=== PATIENT | female | born 1970 | race Caucasian/White ===

== ENCOUNTER 2017-04-09 07:10 | Outpatient (CLI) | payer MEDICARE, MEDICAID | END 2017-04-09 07:11 | disposition home or self-care (01) | LOC: LAB.R 07:10 | PROVIDERS: ATTEND Family Medicine | DX: R30.0 Dysuria (principal) | CPT/HCPCS: 87077; 87086 ==

== ENCOUNTER 2017-07-29 14:03 | Outpatient (CLI) | payer MEDICARE, MEDICAID ==
[2017-07-29 19:48] LABS: ALBUMIN/GLOBULIN RATIO 1.2 (1.0-2.2); BILIRUBIN,TOTAL 0.4 mg/dL (0.2-1.0); BUN - BLOOD UREA NITROGEN 16 mg/dL (6-20); CALCIUM 8.8 mg/dL (8.5-10.3); CARBON DIOXIDE - CO2 31 mmol/L (21-32); CHLORIDE 100 mmol/L (101-111); CHOL/HDL RATIO 2.9 (<4.4); CHOLESTEROL 174 mg/dL; CREATININE 0.9 mg/dL (0.4-1.0); GFR - MDRD 67 (>89); GLUCOSE 87 mg/dL (70-100); HDL CHOLESTEROL 61 mg/dL; LDL/HDL RATIO 1.5 (<4.4); POTASSIUM 3.1 mmol/L (3.5-5.0); SODIUM 141 mmol/L (135-145); TOTAL PROTEIN 7.4 g/dL (6.7-8.2); TRIGLYCERIDES 115 mg/dL; VLDL CHOLESTEROL 23 mg/dL
[2017-07-29 19:54] LABS: BASOPHILS # (AUTO) 0.1 10^3/uL (0.0-0.1); EOSINOPHILS # (AUTO) 0.3 10^3/uL (0.0-0.7); EOSINOPHILS % (AUTO) 3.8 %; HCT - HEMATOCRIT 40.2 % (37.0-47.0); HGB - HEMOGLOBIN 12.6 g/dL (12.0-16.0); IMMATURE RETIC FRACTION 0.41; LYMPHOCYTES # (AUTO) 1.4 10^3/uL (1.5-3.5); LYMPHOCYTES % (AUTO) 20.7 %; MEAN CORPUSCULAR HEMOGLOBIN 25.9 pg (27.0-31.0); MEAN CORPUSCULAR HGB CONC 31.2 g/dL (32.0-36.0); MEAN PLATELET VOLUME 9.6 fL (7.9-10.8); MONOCYTES # (AUTO) 0.6 10^3/uL (0.0-1.0); MONOCYTES % (AUTO) 8.6 %; NEUTROPHILS # (AUTO) 4.5 10^3/uL (1.5-6.6); NEUTROPHILS % (AUTO) 65.9 %; RED BLOOD COUNT 4.85 10^6/uL (4.20-5.40); RED CELL DISTRIBUTION WIDTH 17.5 % (12.0-15.0); UNCORRECTED WHITE BLOOD COUNT 6.9 x10^3/uL; WHITE BLOOD COUNT 6.9 x10^3/uL (4.8-10.8)
[2017-07-29 20:03] LABS: FOLATE 16.96 ng/mL (5.90 - >24.8)
[2017-07-29 21:07] LABS: SLIDE SENT FOR PATH REVIEW? Not Indicated
== END 2017-07-29 14:04 | disposition home or self-care (01) ==
LOC: LAB.N 14:03
PROVIDERS: ATTEND Family Medicine
DX: E11.9 Type 2 diabetes mellitus without complications (principal); E55.9 Vitamin D deficiency, unspecified; D51.8 Other vitamin B12 deficiency anemias
CPT/HCPCS: 36415; 80053; 80061; 82306; 82607; 82746; 85025; 85044

== ENCOUNTER 2017-10-14 08:00 | Outpatient (CLI) | payer MEDICARE, MEDICAID ==
[2017-10-14 19:46] LABS: CREATININE 1.1 mg/dL (0.4-1.0)
== END 2017-10-14 08:01 | disposition home or self-care (01) ==
LOC: LAB.N 08:00
PROVIDERS: ATTEND Family Medicine
DX: E87.6 Hypokalemia (principal)
CPT/HCPCS: 36415; 80048

== ENCOUNTER 2017-10-16 13:52 | Outpatient (CLI) | payer MEDICARE ==
--- NOTE | 2017-10-17 12:21 | XRAY Report ---
DATE OF SERVICE: 10/16/2017 THREE-VIEW RIGHT KNEE: 10/16/2017 CLINICAL INDICATION: Chronic pain. COMPARISON: 08/13/2011 FINDINGS: Frontal, lateral, sunrise views of the right knee demonstrate moderate osteoarthritis. There is no evidence of interval fracture. No effusion is seen. IMPRESSION: MODERATE OSTEOARTHRITIS. TD: 10/17/2017 12:20
== END 2017-10-16 13:53 | disposition home or self-care (01) ==
LOC: DI.N 13:52
PROVIDERS: ATTEND Family Medicine
DX: M17.11 Unilateral primary osteoarthritis, right knee (principal)

== ENCOUNTER 2018-02-05 08:00 | Outpatient (CLI) | payer MEDICARE, MEDICAID ==
[2018-02-05 19:06] LABS: CALCIUM 8.7 mg/dL (8.5-10.3); CREATININE 0.9 mg/dL (0.4-1.0)
== END 2018-02-05 08:01 ==
LOC: LAB.N 08:00
PROVIDERS: ATTEND Family Medicine
DX: E87.6 Hypokalemia (principal)
CPT/HCPCS: 36415; 80048

== ENCOUNTER 2018-07-21 11:52 | Outpatient (CLI) | payer MEDICARE, MEDICAID ==
[2018-07-21 19:06] LABS: BASOPHILS # (AUTO) 0.1 10^3/uL (0.0-0.1); BASOPHILS % (AUTO) 1.3 %; EOSINOPHILS # (AUTO) 0.3 10^3/uL (0.0-0.7); HGB - HEMOGLOBIN 12.8 g/dL (12.0-16.0); LYMPHOCYTES # (AUTO) 1.8 10^3/uL (1.5-3.5); LYMPHOCYTES % (AUTO) 34.1 %; MEAN CORPUSCULAR HEMOGLOBIN 27.5 pg (27.0-31.0); MEAN CORPUSCULAR HGB CONC 31.2 g/dL (32.0-36.0); MEAN CORPUSCULAR VOLUME 88.3 fL (81.0-99.0); MEAN PLATELET VOLUME 9.8 fL (7.9-10.8); MONOCYTES # (AUTO) 0.5 10^3/uL (0.0-1.0); MONOCYTES % (AUTO) 9.7 %; NEUTROPHILS # (AUTO) 2.6 10^3/uL (1.5-6.6); NEUTROPHILS % (AUTO) 49.9 %; PLT - PLATELET COUNT 209 10^3/uL (130-450); RED BLOOD COUNT 4.65 10^6/uL (4.20-5.40); RED CELL DISTRIBUTION WIDTH 15.9 % (12.0-15.0); WHITE BLOOD COUNT 5.3 x10^3/uL (4.8-10.8)
[2018-07-21 19:11] LABS: ALBUMIN 4.2 g/dL (3.2-5.5); ALBUMIN/GLOBULIN RATIO 1.2 (1.0-2.2); BILIRUBIN,TOTAL 0.6 mg/dL (0.2-1.0); CALCIUM 8.9 mg/dL (8.5-10.3); CREATININE 0.9 mg/dL (0.4-1.0); TOTAL PROTEIN 7.6 g/dL (6.7-8.2)
[2018-07-21 19:41] LABS: FERRITIN 11.4 ng/mL (11.0-306.8)
[2018-07-21 19:45] LABS: FOLATE 23.93 ng/mL (5.90 - >24.8)
[2018-07-21 19:55] LABS: HB2 TOTAL 13.3 g/dL; HEMOGLOBIN A1C 0.47 g/dL; HEMOGLOBIN A1C % 5.4 % (4.6-6.2)
== END 2018-07-21 23:59 ==
LOC: LAB.N 11:52
PROVIDERS: ATTEND Family Medicine
DX: D51.8 Other vitamin B12 deficiency anemias (principal); E11.9 Type 2 diabetes mellitus without complications; I89.0 Lymphedema, not elsewhere classified
CPT/HCPCS: 36415; 80053; 82607; 82728; 82746; 83036; 85025

== ENCOUNTER 2018-09-12 13:20 | Outpatient (CLI) | payer MEDICARE, MEDICAID ==
--- NOTE | 2018-09-12 15:50 | XRAY Report ---
Reason: CELLULITIS, RIGHT Procedure Date: 09/12/2018 Accession Number: [id number] / [id number] Procedure: XRN - Finger(s) RT CPT Code: FULL RESULT: EXAM: RIGHT SECOND DIGIT RADIOGRAPHY EXAM DATE: 09/12/2018 01:40 PM. CLINICAL HISTORY: Right hand 2nd finger swelling at distal interphalangeal joint area with drainage of thick clear fluid.. COMPARISON: None. TECHNIQUE: 3 views. FINDINGS: Bones: No osseous destruction. No fracture or bone lesion. Joints: Normal. No subluxations. Soft Tissues: No radiopaque foreign body and no soft tissue gas. IMPRESSION: No radiopaque foreign body and no soft tissue gas. RADIA
== END 2018-09-12 13:21 | disposition home or self-care (01) ==
LOC: DI.N 13:20
PROVIDERS: ATTEND Family Medicine
DX: L03.90 Cellulitis, unspecified (principal)
CPT/HCPCS: 73140

== ENCOUNTER 2018-10-06 10:32 | Outpatient (CLI) | payer MEDICARE, MEDICAID ==
[2018-10-06 11:00] LABS: BASOPHILS # (AUTO) 0.1 10^3/uL (0.0-0.1); BASOPHILS % (AUTO) 1.3 %; EOSINOPHILS # (AUTO) 0.4 10^3/uL (0.0-0.7); EOSINOPHILS % (AUTO) 5.9 %; HGB - HEMOGLOBIN 13.3 g/dL (12.0-16.0); LYMPHOCYTES # (AUTO) 1.8 10^3/uL (1.5-3.5); LYMPHOCYTES % (AUTO) 25.2 %; MEAN CORPUSCULAR HEMOGLOBIN 28.5 pg (27.0-31.0); MEAN CORPUSCULAR HGB CONC 32.5 g/dL (32.0-36.0); MEAN CORPUSCULAR VOLUME 87.7 fL (81.0-99.0); MEAN PLATELET VOLUME 8.8 fL (7.9-10.8); MONOCYTES # (AUTO) 0.8 10^3/uL (0.0-1.0); MONOCYTES % (AUTO) 10.9 %; NEUTROPHILS # (AUTO) 3.9 10^3/uL (1.5-6.6); NEUTROPHILS % (AUTO) 56.7 %; PLT - PLATELET COUNT 214 10^3/uL (130-450); RED BLOOD COUNT 4.68 10^6/uL (4.20-5.40); RED CELL DISTRIBUTION WIDTH 15.1 % (12.0-15.0); WHITE BLOOD COUNT 6.9 x10^3/uL (4.8-10.8)
== END 2018-10-06 10:33 | disposition home or self-care (01) ==
LOC: LAB 10:32
PROVIDERS: ATTEND Orthopaedic Surgery
DX: M00.9 Pyogenic arthritis, unspecified (principal)
CPT/HCPCS: 36415; 85025; 85651; 86140

== ENCOUNTER 2018-10-14 06:04 | Day surgery (SDC) | payer MEDICARE, MEDICAID ==
--- NOTE | 2018-10-14 07:09 | ANESTHESIA ---
Pre-Anesthesia VS, & Labs - Diagnosis Right index finger joint infection - Procedure arthrotomy of right index finger distal interphalangeal joint and fusion of joint Vital Signs: Temp Pulse Resp BP Pulse Ox 36.0 C L 71 18 143/101 H 98 10/14/18 06:45 10/14/18 06:45 10/14/18 06:45 10/14/18 06:45 10/14/18 06:45 Height 5 ft 6 in Weight (kg) 149.4 kg Body Mass Index 41.5 - Is Patient ?: No - Lab Results Lab results reviewed: Yes Home Medications and Allergies Home Medications: Ambulatory Orders Acetaminophen [Tylenol Extra Strength] 500 mg PO Q6H PRN 10/13/18 Cyanocobalamin (Vitamin B-12) [Vitamin B-12 (1000 mcg sublingual)] 1,000 mcg SL DAILY 10/13/18 Ibuprofen [Motrin] 600 mg PO Q6H PRN 10/13/18 Phenylephrine HCl [Sudafed PE] 20 mg PO ONCE PRN 10/13/18 Potassium Chloride 20 meq PO BID 10/13/18 Bupropion HCl [Bupropion HCl Sr] 300 mg PO DAILY 05/18/14 Cholecalciferol (Vitamin D3) [Vitamin D] 8,000 unit PO DAILY 05/18/14 Fluoxetine HCl 80 mg PO DAILY 05/18/14 Furosemide 40 mg PO TID 05/18/14 Gabapentin 1 cap PO DAILY 05/18/14 Gabapentin 1,200 mg PO QPM 05/18/14 Multivitamin [Multivitamins] 1 cap PO DAILY 05/18/14 Pantoprazole Sodium [Protonix] 40 tab PO DAILY 05/18/14 Acetaminophen [Tylenol Extra Strength] 500 mg PO Q6H PRN 10/13/18 Cyanocobalamin (Vitamin B-12) [Vitamin B-12 (1000 mcg sublingual)] 1,000 mcg SL DAILY 10/13/18 Ibuprofen [Motrin] 600 mg PO Q6H PRN 10/13/18 Phenylephrine HCl [Sudafed PE] 20 mg PO ONCE PRN 10/13/18 Potassium Chloride 20 meq PO BID 10/13/18 Allergies/Adverse Reactions: Allergies Allergy/AdvReac Type Severity Reaction Status Date / Time clindamycin Allergy Rash Verified 05/18/14 13:16 doxycycline Allergy Rash Verified 05/18/14 13:16 Sulfa (Sulfonamide Allergy Hives Verified 10/13/18 09:09 Antibiotics) quetiapine fumarate * AdvReac "makes me Verified 10/13/18 09:09 [From Seroquel] anna" Anes History & Medical History - Anesthetic History Anesthesia Complications: reports: No previous complications - Medical History Cardiovascular: reports: Hypertension (states now resolved after gastric bypass) Pulmonary: reports: Sleep apnea (states no longer has THIAGO) Gastrointestinal: reports: GERD (barrets esophagus), Other (Morbid Obesity) Urinary: reports: None Neuro: reports: None Musculoskeletal: reports: Osteoarthritis, Other (lymphadema) Endocrine/Autoimmune: reports: Type 2 diabetes (resolved after gastric bypass) Blood Disorders: reports: None Skin: reports: None Smoking Status: Never smoker Psychosocial: reports: Depression - Surgical History General: Gastric surgery Eyes Ears Nose Throat (EENT): Tonsil/Adenoidectomy Dermatologic: Other Exam General: Alert, Oriented x3, Cooperative, No acute distress Dental: WNL Mouth Openin Fingerbreadth Neck Mobility: Normal Mallampati classification: I Thyromental Distance: 4-6 cm Respiratory: Lungs clear, Normal breath sounds, No respiratory distress, No accessory muscle use Cardiovascular: Regular rate, Normal S1, Normal S2, No murmurs Mental/Cognitive Status: Alert/Oriented X3, Normal for patient Plan Anesthesia Type: MAC Consent for Procedure(s) Verified and Reviewed: Yes Code Status: Attempt Resuscitation ASA classification: 3-Severe systemic disease Is this case an emergency?: No
[2018-10-14] MEDS ORDERED: LACTATED RINGERS 1,000 ML IV ONE (07:11)
[2018-10-14] MEDS ORDERED: BUPIVACAINE 0.25% PF 30 ML VIAL ONE (07:17)
[2018-10-14] MEDS ORDERED: LIDOCAINE-MPF 1% 30 ML VIAL ONE (07:43)
[2018-10-14] MEDS ORDERED: BUPIVACAINE 0.25% PF 30 ML VIAL SUBQ ONE (07:56)
[2018-10-14] MEDS ORDERED: LIDOCAINE 1% 50 ML MDV SUBQ ONE (07:56)
[2018-10-14] MEDS ORDERED: MIDAZOLAM 2 MG/2 ML VIAL IVP ONE (07:58)
[2018-10-14] MEDS ORDERED: fentaNYL 100 MCG/2 ML VIAL IVP ONE (07:58)
[2018-10-14] MEDS ORDERED: LIDOCAINE-MPF 2% 5 ML VIAL IM ONE (07:58)
[2018-10-14] MEDS ORDERED: PROPOFOL 200 MG/20 ML VIAL IVP ONE (07:58)
[2018-10-14] MEDS ORDERED: ceFAZolin 1 GM VIAL IV ONE (07:58)
[2018-10-14] MEDS ORDERED: HYDROcod/ACETAM 5/325 MG TABLET PO PRN (08:46)
[2018-10-14 09:43] VITALS: BP 138/71
--- NOTE | 2018-10-14 10:40 | OPERATIVE REPORT ---
DATE OF SERVICE: 10/14/2018 Physician: Pattie De Leon MD PREOPERATIVE DIAGNOSIS: Suspected infection of right index distal interphalangeal DIP joint with arthritis. POSTOPERATIVE DIAGNOSIS: Right index finger distal interphalangeal DIP joint arthritis. PROCEDURE PERFORMED: Arthrotomy of the right index distal interphalangeal DIP joint, with cultures taken, followed by fusion of the DIP joint. SURGEON: Pattie De Leon MD ANESTHESIA: MAC and local; Efraín Chow. INDICATIONS FOR SURGERY: Patient is a 48-year-old female who has arthritic changes in her hands, who developed a mucous cyst on the dorsum of her right DIP joint of the index finger and she opted to try to self drain this with a needle. This proceeded to lead to outright infection, treated through an outlying clinic with antibiotics. She came to me at a late stage having still some mild residual pink discoloration and tenderness at the joint, and arthritic changes on x-ray, and workup was negative for serum blood tests for infection, and it was elected then to offer her arthrotomy debridement and, if the joint was not grossly infected, to proceed to fusion of the joint after arthrotomy. FINDINGS AT SURGERY: Patient's finger at surgery remained with a faint hue of pink discoloration, as had been seen preoperatively. At arthrotomy, there was no fluid whatsoever. There was cartilage thinning in the joint and mild surrounding osteophytes. The bone density, in general, was not great but relatively preserved with no evidence of bony erosions or destruction. DESCRIPTION OF OPERATIVE PROCEDURE: The patient was taken to the operating room, given MAC anesthesia, followed by a digital block anesthesia utilizing 1% lidocaine plain and 0.25% Marcaine plain. After an adequate period of delay for the block to take effect and the patient to be sedated, her hand was sterilely prepped and draped in standard fashion. A small digital tourniquet was rolled onto the finger and after surgical time-out, surgical approach was made using a curved incision over the DIP joint and reflecting flaps, preserving the extensor tendon. Arthrotomy was made on both sides of the extensor insertion, and no fluid was encountered and no inflamed synovium, simply an arthritic DIP joint with mild spurs. Cultures were taken. At this point, irrigation was performed. The extensor tendon was divided dorsally and the joint exposed more thoroughly, and the joint surfaces were resected with a rongeur to flat surfaces, and then a rasp was used to gently more fully flatten the surfaces for coaptation. They were coapted together and a guide pin was used for the Savanah set for variable compression screws, and placed from distal to proximal into the finger, stabilizing the joint and allowing drilling with the corresponding drill and then inserting a VPC screw, small size, 20 mm length with fluoroscopic imaging to confirm placement and alignment. This was excellent at gaining compression through the fusion site with alignment that was acceptable. At the conclusion of this, the tourniquet was removed, and there was some bleeding controlled with direct pressure, with closure, and interrupted 3-0 sutures, and application of a compressive digital dressing not under extreme compression. The patient was then taken to recovery room in stable condition. ESTIMATED BLOOD LOSS FOR PROCEDURE: Minimal, less than a few cubic centimeters. COMPLICATIONS: None. COUNTS: Sponge and needle counts correct. SPECIMENS: Cultures were sent from the base of the open incision. IMPLANTS: Savanah VPC screw of small size, 20 mm in length. TD: 10/14/2018 09:35 TAMY
[2018-10-14] MEDS ORDERED: cephALEXin 250 MG CAPSULE PO SCH (12:00)
== END 2018-10-14 06:05 | disposition home or self-care (01) ==
LOC: SDS 06:04
PROVIDERS: ATTEND Orthopaedic Surgery
PROC: 0RGW04Z Fusion of Right Finger Phalangeal Joint with Internal Fixation Device, Open Approach (ICD-10-PCS; 2018-10-14)
PROC: 0RBW0ZX Excision of Right Finger Phalangeal Joint, Open Approach, Diagnostic (ICD-10-PCS; principal; 2018-10-14 07:30)
DX: M15.1 Heberden's nodes (with arthropathy) (principal); I10 Essential (primary) hypertension; G47.30 Sleep apnea, unspecified; E66.01 Morbid (severe) obesity due to excess calories; Z68.41 Body mass index [BMI] 40.0-44.9, adult
CPT/HCPCS: 26110; 26860; 87070; 87205; J7120; 80048

== ENCOUNTER → 2019-04-03 | Outpatient (CLI) | payer MEDICARE, MEDICAID | LOC: LAB.R 08:00 | PROVIDERS: ATTEND Family Medicine | DX: L97.315 Non-pressure chronic ulcer of right ankle with muscle involvement without evidence of necrosis (principal) | CPT/HCPCS: 87070; 87075; 87147; 87186; 87205 ==

== ENCOUNTER 2019-07-31 08:59 | Outpatient (CLI) | payer MEDICARE, MEDICAID ==
--- NOTE | 2019-08-01 08:25 | XRAY Report ---
Reason: KNEE JOINT PAIN Procedure Date: 07/31/2019 Accession Number: [id number] / [id number] Procedure: XRN - Knee 3 View RT CPT Code: Final Report FULL RESULT: EXAM: RIGHT KNEE RADIOGRAPHY EXAM DATE: 07/31/2019 09:19 AM. CLINICAL HISTORY: KNEE JOINT PAIN. COMPARISON: KNEE 3 VIEW RT 10/16/2017 2:08 PM. TECHNIQUE: 3 views. FINDINGS: Bones: No fracture seen. Joints: No dislocation. There is 3 compartment degenerative joint disease, most severe in the patellofemoral compartment. This appears progressive compared with the prior exam. No joint effusion seen. Soft Tissues: Grossly unremarkable. IMPRESSION: Degenerative joint disease, most severe in the patellofemoral compartment. Kellgren Александр Grade 3. Kellgren and Александр classification of osteoarthritis: Grade 0: no radiographic features of osteoarthritis are present Grade 1: doubtful joint space narrowing (JSN) and possible osteophytic lipping Grade 2: definite osteophytes and possible JSN on anteroposterior weight-bearing radiograph Grade 3: multiple osteophytes, definite JSN, sclerosis, possible bony deformity Grade 4: large osteophytes, marked JSN, severe sclerosis and definite bony deformity RADIA
== END 2019-07-31 09:00 | disposition home or self-care (01) ==
LOC: DI.N 08:59
PROVIDERS: ATTEND Family Medicine
DX: M17.11 Unilateral primary osteoarthritis, right knee (principal)

== ENCOUNTER 2020-04-18 12:09 | Outpatient (CLI) | payer MEDICARE, MEDICAID ==
[2020-04-18 18:10] LABS: BASOPHILS # (AUTO) 0.1 10^3/uL (0.0-0.1); EOSINOPHILS # (AUTO) 0.2 10^3/uL (0.0-0.7); EOSINOPHILS % (AUTO) 3.9 %; HGB - HEMOGLOBIN 13.5 g/dL (12.0-16.0); LYMPHOCYTES # (AUTO) 1.6 10^3/uL (1.5-3.5); LYMPHOCYTES % (AUTO) 26.3 %; MEAN CORPUSCULAR HEMOGLOBIN 28.7 pg (27.0-31.0); MEAN CORPUSCULAR HGB CONC 28.9 g/dL (32.0-36.0); MEAN CORPUSCULAR VOLUME 99.4 fL (81.0-99.0); MONOCYTES # (AUTO) 0.6 10^3/uL (0.0-1.0); NEUTROPHILS # (AUTO) 3.6 10^3/uL (1.5-6.6); NEUTROPHILS % (AUTO) 58.3 %; PLT - PLATELET COUNT 243 10^3/uL (130-450); RED CELL DISTRIBUTION WIDTH 14.3 % (12.0-15.0); WHITE BLOOD COUNT 6.2 x10^3/uL (4.8-10.8)
[2020-04-18 18:56] LABS: ALBUMIN 4.1 g/dL (3.2-5.5); ALBUMIN/GLOBULIN RATIO 1.3 (1.0-2.2); ALKALINE PHOSPHATASE 115 IU/L (42-121); ALT ALANINE AMINOTRANSFERASE 18 IU/L (10-60); AST ASPARTATE AMINOTRANSFERASE 16 IU/L (10-42); BILIRUBIN,TOTAL 0.8 mg/dL (0.2-1.0); BUN - BLOOD UREA NITROGEN 16 mg/dL (6-20); CARBON DIOXIDE - CO2 32 mmol/L (21-32); CHLORIDE 102 mmol/L (101-111); CHOL/HDL RATIO 3.3 (<4.4); CHOLESTEROL 218 mg/dL; GLUCOSE 88 mg/dL (70-100); HDL CHOLESTEROL 67 mg/dL; LDL CHOLESTEROL,CALCULATED 128 mg/dL; LDL/HDL RATIO 1.9 (<4.4); SODIUM 141 mmol/L (135-145); TOTAL PROTEIN 7.3 g/dL (6.7-8.2); VLDL CHOLESTEROL 23 mg/dL
[2020-04-18 19:12] LABS: HB2 TOTAL 14.1 g/dL; HEMOGLOBIN A1C 0.49 g/dL; HEMOGLOBIN A1C % 5.3 % (4.6-6.2)
== END 2020-04-18 23:59 | disposition home or self-care (01) ==
LOC: LAB.WCP 12:09
PROVIDERS: ATTEND Family Medicine
DX: E78.5 Hyperlipidemia, unspecified (principal); E11.9 Type 2 diabetes mellitus without complications
CPT/HCPCS: 36415; 80053; 80061; 83036; 83721; 84443; 85025

== ENCOUNTER 2020-06-10 18:39 | Emergency (ER) | payer MEDICARE, MEDICAID ==
[2020-06-10 20:53] VITALS: BP 146/91
--- NOTE | 2020-06-10 22:16 | ED Physician Documentation ---
History of Present Illness - Stated complaint Stated Complaint: FINGER LAC - Chief complaint Chief Complaint: Laceration - History obtained from History obtained from: Patient - Additonal information Additional information: Patient is a 50-year-old female who accidentally lacerated the dorsal ax aspect of her right index finger at the PIP joint. She reports her tetanus is up-to-date reports that she cut it on a metal sign.Denies any difficulty moving her finger denies taking blood thinners. Reports she is right-hand dominant. Review of Systems Constitutional: reports: Reviewed and negative Eyes: reports: Reviewed and negative Ears: reports: Reviewed and negative Nose: reports: Reviewed and negative Throat: reports: Reviewed and negative Cardiac: reports: Reviewed and negative Respiratory: reports: Reviewed and negative GI: reports: Reviewed and negative : reports: Reviewed and negative Skin: reports: Laceration (s) Musculoskeletal: reports: Reviewed and negative Neurologic: reports: Reviewed and negative Psychiatric: reports: Reviewed and negative Endocrine: reports: Reviewed and negative Immunocompromised: reports: Reviewed and negative PD PAST MEDICAL HISTORY - Past Medical History Past Medical History: Yes Cardiovascular: Hypertension Respiratory: None Neuro: None Endocrine/Autoimmune: None GI: GERD, Other : None HEENT: None Psych: Depression Musculoskeletal: Osteoarthritis, Other Derm: None - Past Surgical History Past Surgical History: Yes General: Gastric surgery HEENT: Tonsil/Adenoidectomy Derm: Other - Present Medications Home Medications: Ambulatory Orders Medication Instructions Recorded Confirmed Bupropion HCl [Bupropion HCl Sr] 300 mg PO DAILY 05/18/14 06/10/20 Fluoxetine HCl 80 mg PO DAILY 05/18/14 06/10/20 Furosemide 40 mg PO TID 05/18/14 06/10/20 Gabapentin 600 mg PO BID 05/18/14 06/10/20 Multivitamin [Multivitamins] 1 cap PO DAILY 05/18/14 06/10/20 Pantoprazole Sodium [Protonix] 40 tab PO DAILY 05/18/14 06/10/20 Acetaminophen [Tylenol Extra 500 mg PO Q6H PRN 10/13/18 06/10/20 Strength] Cyanocobalamin (Vitamin B-12) 1,000 mcg SL DAILY 10/13/18 06/10/20 [Vitamin B-12 (1000 mcg sublingual)] Ibuprofen [Motrin] 600 mg PO Q6HR PRN 10/13/18 06/10/20 Potassium Chloride 20 meq PO BID 10/13/18 06/10/20 Cholecalciferol (Vitamin D3) 1 cap PO DAILY 11/04/18 06/10/20 [Vitamin D3] Ciprofloxacin HCl [Cipro] 1 tab PO BID 04/24/19 06/10/20 - Allergies Allergies/Adverse Reactions: Allergies Allergy/AdvReac Type Severity Reaction Status Date / Time clindamycin Allergy Rash Verified 06/10/20 20:49 doxycycline Allergy Rash Verified 06/10/20 20:49 Sulfa (Sulfonamide Allergy Hives Verified 06/10/20 20:49 Antibiotics) quetiapine fumarate * AdvReac "makes me Verified 06/10/20 20:49 [From Seroquel] harleyy" - Social History Does the pt smoke?: No Smoking Status: Never smoker Does the pt drink ETOH?: No Does the pt have substance abuse?: No - Immunizations Immunizations are current?: Yes - POLST Patient has POLST: No PD ED PE NORMAL - Vitals Vital signs reviewed: Yes - General General: Alert and oriented X 3, No acute distress, Well developed/nourished - HEENT HEENT: Atraumatic, PERRL - Neck Neck: Supple, no meningeal sign - Cardiac Cardiac: RRR, No murmur, Strong equal pulses - Respiratory Respiratory: Clear bilaterally - Abdomen Abdomen: Normal bowel sounds, Soft, Non tender, Non distended - Derm Derm: Warm and dry, Other (1/2 cm laceration to the dorsal aspect of the right index finger over the PIP joint no tendon involvement.) - Extremities Extremities: Other (Right index finger 1/2 cm laceration of the dorsal aspect of the PIP joint with no tendon involvement.) - Neuro Neuro: Alert and oriented X 3 - Psych Psych: Normal mood, Normal affect - Free text exam Free text exam: 1/2 cm laceration to the dorsal aspect of the right index finger over the PIP joint. With no tendon involvement radian, median, ulnar motor and sensory exam are intact sensations intact light touch full range of motion at the MCP as well as the PIP and DIP joints on flexion extension on passive and active range of motion with no deficits noted. Results - Vitals Vitals: Vital Signs - 24 hr 06/10/20 06/10/20 18:52 20:52 Temperature 36.2 C L Heart Rate 86 68 Respiratory 18 18 Rate Blood Pressure 105/45 L 146/91 H O2 Saturation 98 98 Oxygen O2 Source Room air Procedures - Laceration (location) Finger right Dorsal Length in cm: 1.5 Wound type: Curved Neurovascular status: Sensory intact, Motor intact, Vascular intact Anesthesia: Lidocaine 1% with epi, OTH (Digital block using 1/2 cc at both webspaces was used with good anesthesia achieved.) Wound Preparation: Irrigated copiously NS, Other (No foreign bodies identified) Skin layer closure: Nylon, Size #-0 - enter number (5), Sutures - enter # (5) Other: Patient tolerated well, No complications, Neurovascular intact, Dressing applied, Tetanus UTD Complexity: Simple Departure - Departure Disposition: 01 Home, Self Care Clinical Impression: Finger laceration Qualifiers: Encounter type: initial encounter Finger: index finger Damage to nail status: without damage Foreign body presence: without foreign body Laterality: right Qualified Code(s): S61.210A - Laceration without foreign body of right index finger without damage to nail, initial encounter Condition: Stable Instructions: ED Laceration Hand Follow-Up: DICK LOPEZ MD [Primary Care Provider] - Within 1 week Comments: Keep wound clean and protected at all times. Follow-up for suture removal in 7 to 10 days.
[2020-06-10] MEDS ORDERED: LIDOCAINE 1%-EPI 1:100000 20 ML MDV SUBQ STA (22:21)
== END 2020-06-10 23:40 | disposition home or self-care (01) ==
LOC: ED 18:39
DX: S61.210A Laceration without foreign body of right index finger without damage to nail, initial encounter (principal); W26.8XXA Contact with other sharp object(s), not elsewhere classified, initial encounter
CPT/HCPCS: 12001; 99282

== ENCOUNTER 2021-01-16 07:00 | Outpatient (CLI) | payer MEDICARE, MEDICAID ==
[2021-01-16 18:11] LABS: BASOPHILS # (AUTO) 0.1 10^3/uL (0.0-0.1); BASOPHILS % (AUTO) 1.2 %; EOSINOPHILS # (AUTO) 0.3 10^3/uL (0.0-0.7); HCT - HEMATOCRIT 42.5 % (37.0-47.0); HGB - HEMOGLOBIN 12.3 g/dL (12.0-16.0); LYMPHOCYTES # (AUTO) 2.5 10^3/uL (1.5-3.5); LYMPHOCYTES % (AUTO) 36.4 %; MEAN CORPUSCULAR HEMOGLOBIN 30.2 pg (27.0-31.0); MEAN CORPUSCULAR HGB CONC 28.9 g/dL (32.0-36.0); MEAN CORPUSCULAR VOLUME 104.4 fL (81.0-99.0); MEAN PLATELET VOLUME 11.2 fL (7.9-10.8); MONOCYTES # (AUTO) 0.6 10^3/uL (0.0-1.0); MONOCYTES % (AUTO) 8.9 %; NEUTROPHILS # (AUTO) 3.3 10^3/uL (1.5-6.6); NEUTROPHILS % (AUTO) 49.2 %; PLT - PLATELET COUNT 243 10^3/uL (130-450); RED BLOOD COUNT 4.07 10^6/uL (4.20-5.40); RED CELL DISTRIBUTION WIDTH 14.6 % (12.0-15.0); WHITE BLOOD COUNT 6.8 x10^3/uL (4.8-10.8)
[2021-01-16 18:26] LABS: SLIDE REVIEW? Indicated
[2021-01-16 18:51] LABS: ALBUMIN 4.1 g/dL (3.2-5.5); ALBUMIN/GLOBULIN RATIO 1.6 (1.0-2.2); ALKALINE PHOSPHATASE 81 IU/L (42-121); ALT ALANINE AMINOTRANSFERASE 17 IU/L (10-60); AST ASPARTATE AMINOTRANSFERASE 17 IU/L (10-42); BILIRUBIN,TOTAL 0.5 mg/dL (0.2-1.0); BUN - BLOOD UREA NITROGEN 21 mg/dL (6-20); CALCIUM 8.8 mg/dL (8.5-10.3); CARBON DIOXIDE - CO2 28 mmol/L (21-32); CHLORIDE 106 mmol/L (101-111); CHOL/HDL RATIO 2.7 (<4.4); CHOLESTEROL 199 mg/dL; GFR - MDRD 58 (>89); GLUCOSE 88 mg/dL (70-100); HDL CHOLESTEROL 73 mg/dL; LDL CHOLESTEROL,CALCULATED 105 mg/dL; LDL/HDL RATIO 1.4 (<4.4); SODIUM 143 mmol/L (135-145); TOTAL PROTEIN 6.7 g/dL (6.7-8.2); TRIGLYCERIDES 105 mg/dL; VLDL CHOLESTEROL 21 mg/dL
[2021-01-16 19:31] LABS: PLATELET ESTIMATE, MANUAL NORMAL (130-450,000) (NORMAL); PLATELET MORPHOLOGY RARE GIANT PLATELETS (NORMAL)
[2021-01-16 20:50] LABS: ESTIMATED AVERAGE GLUCOSE 103 mg/dL (70-100); HEMOGLOBIN A1c% 5.2 % (4.27-6.07)
== END 2021-01-16 23:59 | disposition home or self-care (01) ==
LOC: LAB.WCP 07:00
PROVIDERS: ATTEND Physician Assistant Medical
DX: E78.5 Hyperlipidemia, unspecified (principal); E53.8 Deficiency of other specified B group vitamins; E11.9 Type 2 diabetes mellitus without complications
CPT/HCPCS: 36415; 80053; 80061; 82607; 83036; 83721; 85025

== ENCOUNTER 2022-01-17 08:00 | Outpatient (CLI) | payer MEDICARE, MEDICAID | END 2022-01-17 08:01 | disposition home or self-care (01) | LOC: LAB.N 08:00 | PROVIDERS: ATTEND Physician Assistant Medical | DX: Z79.01 Long term (current) use of anticoagulants (principal); I48.0 Paroxysmal atrial fibrillation ==

== ENCOUNTER 2022-02-07 08:00 | Outpatient (CLI) | payer MEDICARE, MEDICAID | END 2022-02-07 08:01 | disposition home or self-care (01) | LOC: LAB.N 08:00 | PROVIDERS: ATTEND Physician Assistant Medical | DX: I48.91 Unspecified atrial fibrillation (principal); Z79.01 Long term (current) use of anticoagulants ==

== ENCOUNTER 2022-02-07 13:10 | Outpatient (CLI) | payer MEDICARE, MEDICAID | END 2022-02-07 13:11 | disposition EMS.NT | LOC: EMS 13:10 | DX: Z03.89 Encounter for observation for other suspected diseases and conditions ruled out (principal); Z79.01 Long term (current) use of anticoagulants ==

== ENCOUNTER 2022-02-21 08:00 | Outpatient (CLI) | payer MEDICARE, MEDICAID | END 2022-02-21 23:59 | disposition home or self-care (01) | LOC: LAB.WCP 08:00 | PROVIDERS: ATTEND Physician Assistant Medical | DX: I48.91 Unspecified atrial fibrillation (principal); Z79.01 Long term (current) use of anticoagulants ==

== ENCOUNTER → 2022-03-07 | Outpatient (CLI) | payer MEDICARE, MEDICAID | LOC: LAB.WCP 08:00 | PROVIDERS: ATTEND Nurse Practitioner | DX: I48.91 Unspecified atrial fibrillation (principal); Z79.01 Long term (current) use of anticoagulants ==

== ENCOUNTER → 2022-03-28 | Outpatient (CLI) | payer MEDICARE, MEDICAID | LOC: LAB.WCP 08:00 | PROVIDERS: ATTEND Physician Assistant Medical | DX: I48.91 Unspecified atrial fibrillation (principal); Z86.73 Personal history of transient ischemic attack (TIA), and cerebral infarction without residual deficits; Z79.01 Long term (current) use of anticoagulants ==

== ENCOUNTER 2022-07-30 12:43 | Outpatient (CLI) | payer MEDICARE, MEDICAID ==
[2022-07-30 18:28] LABS: CALCIUM 8.5 mg/dL (8.5-10.3); CREATININE 1.4 mg/dL (0.4-1.0); POTASSIUM 3.4 mmol/L (3.5-5.0)
== END 2022-07-30 12:44 | disposition home or self-care (01) ==
LOC: LAB.N 12:43
PROVIDERS: ATTEND Physician Assistant Medical
DX: N28.9 Disorder of kidney and ureter, unspecified (principal); E53.8 Deficiency of other specified B group vitamins
CPT/HCPCS: 36415; 80048; 82607

== ENCOUNTER 2022-09-01 14:08 | Outpatient (CLI) | payer MEDICARE, MEDICAID | END 2022-09-01 14:09 | disposition short-term general hospital (02) | LOC: EMS 14:08 | DX: R07.9 Chest pain, unspecified (principal); R10.13 Epigastric pain; M54.50 Low back pain, unspecified; R42 Dizziness and giddiness; R11.0 Nausea | CPT/HCPCS: A0425; A0427 ==

== ENCOUNTER 2022-09-20 11:51 | Outpatient (CLI) | payer MEDICARE, MEDICAID ==
[2022-09-20 18:05] LABS: CALCIUM 9.4 mg/dL (8.5-10.3); CREATININE 1.1 mg/dL (0.4-1.0); POTASSIUM 4.6 mmol/L (3.5-5.0)
== END 2022-09-20 11:52 | disposition home or self-care (01) ==
LOC: LAB.N 11:51
PROVIDERS: ATTEND Physician Assistant
DX: N28.9 Disorder of kidney and ureter, unspecified (principal); I48.19 Other persistent atrial fibrillation; Z87.19 Personal history of other diseases of the digestive system
CPT/HCPCS: 36415; 80048

== ENCOUNTER 2022-12-20 11:42 | Outpatient (CLI) | payer MEDICARE, MEDICAID ==
--- NOTE | 2022-12-21 07:07 | XRAY Report ---
PROCEDURE: Knee 3 View BILAT INDICATIONS: KNEE PAIN,BILATERAL TECHNIQUE: 3 views of the both knee(s) were acquired. COMPARISON: None. FINDINGS: Left side: Severe degenerative changes, with minimal subluxation and severe joint space narrowing in the medial compartment. No displaced fracture or dislocation. There is also advanced patellofemoral j oint space narrowing and osteophyte formation. Small joint effusion suspected. Right side: Severe degenerative changes, slightly worse than the contralateral side, with more advanc ed lateral subluxation of the tibia in relation to the femur. Surgical clips are present. Patellofemo ral osteophytes and degenerative changes are also present. Small joint effusion. IMPRESSION: Very advanced degenerative changes as above, worse on the right side, including lateral subluxation o f the tibia and relation to the femur. Small joint effusions. Reviewed by: Stefan Coombs MD on 12/20/2022 12:50 PM PDT Approved by: Stefan Coombs MD on 12/20/2022 12:50 PM PDT Station ID: [id number]
== END 2022-12-20 11:43 | disposition home or self-care (01) ==
LOC: DI 11:42
PROVIDERS: ATTEND Physician Assistant Medical
DX: M17.0 Bilateral primary osteoarthritis of knee (principal); S83.141A Lateral subluxation of proximal end of tibia, right knee, initial encounter

== ENCOUNTER 2023-07-03 12:08 | Outpatient (CLI) | payer MEDICARE, MEDICAID ==
[2023-07-03 17:47] LABS: BASOPHILS # (AUTO) 0.1 10^3/uL (0.0-0.1); BASOPHILS % (AUTO) 1.4 %; EOSINOPHILS # (AUTO) 0.2 10^3/uL (0.0-0.7); EOSINOPHILS % (AUTO) 4.4 %; HCT - HEMATOCRIT 41.5 % (37.0-47.0); LYMPHOCYTES # (AUTO) 1.9 10^3/uL (1.5-3.5); LYMPHOCYTES % (AUTO) 35.8 %; MEAN CORPUSCULAR HEMOGLOBIN 29.9 pg (27.0-31.0); MEAN CORPUSCULAR HGB CONC 28.9 g/dL (32.0-36.0); MEAN CORPUSCULAR VOLUME 103.2 fL (81.0-99.0); MEAN PLATELET VOLUME 10.9 fL (7.9-10.8); MONOCYTES # (AUTO) 0.6 10^3/uL (0.0-1.0); MONOCYTES % (AUTO) 10.6 %; NEUTROPHILS # (AUTO) 2.5 10^3/uL (1.5-6.6); NEUTROPHILS % (AUTO) 47.4 %; PLT - PLATELET COUNT 250 10^3/uL (130-450); RED BLOOD COUNT 4.02 10^6/uL (4.20-5.40); RED CELL DISTRIBUTION WIDTH 14.5 % (12.0-15.0); WHITE BLOOD COUNT 5.2 x10^3/uL (4.8-10.8)
[2023-07-03 17:56] LABS: CREATININE,URINE 5.8 mg/dL; SODIUM, URINE 119.9 mmol/L
[2023-07-03 17:59] LABS: ALBUMIN 4.1 g/dL (3.2-5.5); ALBUMIN/GLOBULIN RATIO 1.9 (1.0-2.2); BILIRUBIN,TOTAL 0.3 mg/dL (0.2-1.0); CALCIUM 9.2 mg/dL (8.5-10.3); CREATININE 1.1 mg/dL (0.6-1.3); POTASSIUM 4.2 mmol/L (3.5-4.5); TOTAL PROTEIN 6.3 g/dL (6.4-8.9)
[2023-07-03 18:58] LABS: SLIDE REVIEW? Indicated
[2023-07-03 18:59] LABS: PLATELET ESTIMATE, MANUAL NORMAL (130-450,000) (NORMAL); PLATELET MORPHOLOGY 1+ GIANT PLATELETS (NORMAL)
[2023-07-03 20:13] LABS: ESTIMATED AVERAGE GLUCOSE 103 mg/dL (70-100); HEMOGLOBIN A1c% 5.2 % (4.27-6.07)
== END 2023-07-03 12:09 | disposition home or self-care (01) ==
LOC: LAB.N 12:08
PROVIDERS: ATTEND Physician Assistant Medical
DX: E11.9 Type 2 diabetes mellitus without complications (principal); N28.9 Disorder of kidney and ureter, unspecified; D64.9 Anemia, unspecified; E53.8 Deficiency of other specified B group vitamins
CPT/HCPCS: 36415; 80053; 82570; 82607; 83036; 84300; 85025

== ENCOUNTER 2023-12-31 12:28 | Outpatient (CLI) | payer MEDICARE, MEDICAID ==
[2023-12-31 18:00] LABS: ALBUMIN/GLOBULIN RATIO 1.5 (1.0-2.2); ALKALINE PHOSPHATASE 106 IU/L (42-121); ALT ALANINE AMINOTRANSFERASE 15 IU/L (10-60); AST ASPARTATE AMINOTRANSFERASE 17 IU/L (10-42); BILIRUBIN,TOTAL 0.3 mg/dL (0.2-1.0); BUN - BLOOD UREA NITROGEN 19 mg/dL (6-20); CALCIUM 9.3 mg/dL (8.5-10.3); CARBON DIOXIDE - CO2 34 mmol/L (21-32); CHLORIDE 101 mmol/L (101-111); CHOL/HDL RATIO 3.3 (<4.4); CHOLESTEROL 235 mg/dL; CREATININE 1.2 mg/dL (0.6-1.3); GFR - MDRD 47 (>89); GLUCOSE 86 mg/dL (74-104); HDL CHOLESTEROL 72 mg/dL; LDL CHOLESTEROL,CALCULATED 137 mg/dL; LDL/HDL RATIO 1.9 (<4.4); POTASSIUM 3.7 mmol/L (3.5-4.5); SODIUM 141 mmol/L (135-145); TOTAL PROTEIN 6.7 g/dL (6.4-8.9); TRIGLYCERIDES 128 mg/dL (48-352); VLDL CHOLESTEROL 26 mg/dL
[2023-12-31 21:32] LABS: ESTIMATED AVERAGE GLUCOSE 105 mg/dL (70-100); HEMOGLOBIN A1c% 5.3 % (4.27-6.07)
== END 2023-12-31 12:29 | disposition home or self-care (01) ==
LOC: LAB.N 12:28
PROVIDERS: ATTEND Physician Assistant Medical
DX: E11.9 Type 2 diabetes mellitus without complications (principal)
CPT/HCPCS: 36415; 80053; 80061; 83036; 83721

== ENCOUNTER 2024-01-30 11:29 | Outpatient (CLI) | payer MEDICARE, MEDICAID ==
--- NOTE | 2024-01-31 08:47 | Mammography Report ---
BILATERAL DIGITAL SCREENING MAMMOGRAM 3D/2D: 01/30/2024 CLINICAL: Routine screening. Comparison is made to exams dated: 10/03/2022 mammogram, 01/16/2011 mammogram, and 12/22/2009 mammogram - [facility]. Both breasts are almost entirely fatty (category a/<25% glandular tissue). No significant masses, calcifications, or other findings are seen in either breast. There has been no significant interval change. IMPRESSION: NEGATIVE There is no mammographic evidence of malignancy. A 1 year screening mammogram is recommended. Based on the Tyrer Cuzick model (a risk assessment model) the patient's lifetime risk is 4.3% and her 10 year risk is 1.3%. According to the ACR, ACS, and NCCN guidelines, an annual breast MRI exam hugo g with mammogram is recommended if the patient's lifetime risk is 20% or greater. This exam was interpreted at Station ID: [id number]. NOTE: For mammograms, a report in lay terms will be sent to the patient. Approximately 15% of breast malignancies will not be visualized mammographically. In the management of a palpable breast mass, a negative mammogram must not discourage biopsy of a clinically suspicious lesion. Electronically Signed By: Danita abraham/mor:01/30/2024 17:40:56 letter sent: No_Letter ACR BI-RADS Category 1: Negative 3341F PARENCHYMAL PATTERN: (F) - The breast(s) demonstrate(s) diffuse fatty replacement. BI-RADS CATEGORY: (1) - 1 RECOMMENDATION: (ANNUAL) - Recommend routine annual screening mammography. [id number] 1 year screening LATERALITY: (B)
== END 2024-01-30 11:30 | disposition home or self-care (01) ==
LOC: DI.N 11:29
DX: Z12.31 Encounter for screening mammogram for malignant neoplasm of breast (principal)

== ENCOUNTER 2024-04-02 09:46 | Emergency (ER) | payer MEDICARE, MEDICAID ==
[2024-04-02 10:36] VITALS: BP 116/70; O2SAT 100
--- NOTE | 2024-04-02 10:55 | XRAY Report ---
PROCEDURE: Finger(s) RT INDICATIONS: Trauma TECHNIQUE: AP hand, 2 views of the right first finger(s) acquired. COMPARISON: None. FINDINGS: Bones: No fractures or dislocations. No suspicious bony lesions. Second DIP joint arthrodesis screw . Soft tissues: No suspicious soft tissue calcifications or masses. IMPRESSION: No fracture. No acute osseous lesion. If symptoms and/or clinical concern for pathology persists, fur ther assessment with repeat plain film radiographs (7-10 days) or advanced imaging (CT, MR, bone scan ) should be considered. Reviewed by: Berkley Rodriguez MD, PhD on 04/02/2024 10:54 AM PDT Approved by: Berkley Rodriguez MD, PhD on 04/02/2024 10:54 AM PDT Station ID: [id number]
--- NOTE | 2024-04-02 10:58 | ED Physician Documentation ---
PD HPI UPPER EXT INJURY - Stated complaint Stated Complaint: RT THUMB PX - Chief complaint Chief Complaint: Ext Problem - History obtained from History obtained from: Patient - Additonal information Additional information: The patient comes to the emergency department chief complaint of right thumb pain for 2 days after a twisting injury while holding onto her walker and dog's leash. She states she was walking her dog while ambulating with her walker and that the dog saw a rabbit and went to take off after it. The lease jerked against her thumb and she has had some pain and swelling about the first MCP joint since. Moderate limitation of range of motion secondary to pain and swelling. No numbness or tingling. No deformity that the patient's noticed. Her hand otherwise is fine as is her wrist, and she was not injured in any other way. PD PAST MEDICAL HISTORY - Past Medical History Past Medical History: Yes Cardiovascular: Hypertension Respiratory: None Neuro: None Endocrine/Autoimmune: None GI: GERD, Other : None HEENT: None Psych: Depression Musculoskeletal: Osteoarthritis, Other Derm: None - Past Surgical History Past Surgical History: Yes General: Gastric surgery HEENT: Tonsil/Adenoidectomy Derm: Other - Present Medications Home Medications: Ambulatory Orders Medication Instructions Recorded Confirmed Bupropion HCl [Bupropion HCl Sr] 300 mg PO DAILY 05/18/14 06/10/20 Fluoxetine HCl 80 mg PO DAILY 05/18/14 06/10/20 Furosemide 40 mg PO TID 05/18/14 06/10/20 Gabapentin 600 mg PO BID 05/18/14 06/10/20 Multivitamin [Multivitamins] 1 cap PO DAILY 05/18/14 06/10/20 Pantoprazole Sodium [Protonix] 40 tab PO DAILY 05/18/14 06/10/20 Acetaminophen [Tylenol Extra 500 mg PO Q6H PRN 10/13/18 06/10/20 Strength] Cyanocobalamin (Vitamin B-12) 1,000 mcg SL DAILY 10/13/18 06/10/20 [Vitamin B-12 (1000 mcg sublingual)] Ibuprofen [Motrin] 600 mg PO Q6HR PRN 10/13/18 06/10/20 Potassium Chloride 20 meq PO BID 10/13/18 06/10/20 Cholecalciferol (Vitamin D3) 1 cap PO DAILY 11/04/18 06/10/20 [Vitamin D3] Ciprofloxacin HCl [Cipro] 1 tab PO BID 04/24/19 06/10/20 - Allergies Allergies/Adverse Reactions: Allergies Allergy/AdvReac Type Severity Reaction Status Date / Time clindamycin Allergy Rash Verified 04/02/24 10:28 doxycycline Allergy Rash Verified 04/02/24 10:28 Sulfa (Sulfonamide Allergy Hives Verified 04/02/24 10:28 Antibiotics) quetiapine fumarate * AdvReac "makes me Verified 04/02/24 10:28 [From Seroquel] anna" - Social History Does the pt smoke?: No Smoking Status: Never smoker Does the pt drink ETOH?: No Does the pt have substance abuse?: No - Immunizations Immunizations are current?: Yes - POLST Patient has POLST: No PD ED PE NORMAL - Vitals Vital signs reviewed: Yes - General General: Alert and oriented X 3, No acute distress, Well developed/nourished - HEENT HEENT: Atraumatic, EOMI, Moist mucous membranes - Neck Neck: Supple, no meningeal sign - Cardiac Cardiac: Strong equal pulses - Respiratory Respiratory: No respiratory distress - Derm Derm: Warm and dry, Other (Contusion, mild, over right thumb.) - Extremities Extremities: No deformity, Other (Mild edema about right first MCP joint. Mild to moderately limited range of motion, especially with flexion, secondary to pain and swelling.) - Neuro Neuro: Alert and oriented X 3 - Psych Psych: Normal mood, Normal affect Results - Vitals Vitals: Vital Signs - 24 hr 04/02/24 10:24 Temperature 35.8 C L Heart Rate 55 L Respiratory 16 Rate Blood Pressure 116/70 O2 Saturation 100 Oxygen O2 Source Room air - Rads (name of study) Right hand x-ray series Relevant Findings:: Final report received, See rad report (Negative) PD Medical Decision Making - ED course Complexity details: reviewed results, re-evaluated patient, considered differential, d/w patient ED course: The patient's x-ray series looked great, and I suspected a sprain of the thumb. The patient declined to have a splint placed and stated she would rather just have her thumb the free. We have discussed avoiding movements or positions that cause pain in the affected joint. We have discussed the need for follow-up if symptoms drag out for more than a few weeks. Departure - Departure Disposition: 01 Home, Self Care Clinical Impression: Sprain of right thumb Qualifiers: Encounter type: initial encounter Sprain of finger site: metacarpophalangeal joint Qualified Code(s): S63.641A - Sprain of metacarpophalangeal joint of right thumb, initial encounter Condition: Stable Instructions: ED Sprain Finger Comments: Your x-ray series looks great. You have most likely sprained your thumb and sprains can take several weeks to heal. Generally, they get better over time, however. Is important that you follow-up with your primary doctor if you find that it is persistently bothering you after the next several weeks of time. You may take ibuprofen and Tylenol as needed. You may also apply ice packs. Please avoid strenuous work with your thumb until it has improved.
== END 2024-04-02 11:12 | disposition home or self-care (01) ==
LOC: ED 09:46
DX: S63.641A Sprain of metacarpophalangeal joint of right thumb, initial encounter (principal); X50.1XXA Overexertion from prolonged static or awkward postures, initial encounter; Y93.K1 Activity, walking an animal
CPT/HCPCS: 99283

== ENCOUNTER 2024-04-28 08:29 | Day surgery (SDC) | payer MEDICARE, MEDICAID ==
--- NOTE | 2024-04-28 06:27 | HISTORY & PHYSICAL EXAMINATION ---
PMH/PSH - Past Medical History Cardiovascular: positive: Hypertension Respiratory: positive: None Neuro: positive: None Endocrine/Autoimmune: positive: None GI: positive: GERD, Other : positive: None HEENT: positive: None Psych: positive: Depression Musculoskeletal: positive: Osteoarthritis, Other Derm: positive: None MRSA Hx?: No - Past Surgical History General: positive: Gastric surgery HEENT: positive: Tonsil/Adenoidectomy Derm: positive: Other Social & Family Hx - Social History Does the pt smoke?: No Smoking Status: Never smoker Does the pt drink ETOH?: No Does the pt have substance abuse?: No - POLST Patient has POLST: No Meds/Allgy - Home Medications Home Medications: Ambulatory Orders Medication Instructions Recorded Confirmed Bupropion HCl [Bupropion HCl Sr] 300 mg PO DAILY 05/18/14 04/27/24 Fluoxetine HCl 80 mg PO DAILY 05/18/14 04/27/24 Furosemide 40 mg PO TID 05/18/14 04/27/24 Gabapentin 600 mg PO BID 05/18/14 04/27/24 Multivitamin [Multivitamins] 1 cap PO DAILY 05/18/14 04/27/24 Pantoprazole Sodium [Protonix] 40 tab PO DAILY 05/18/14 04/27/24 Acetaminophen [Tylenol Extra 500 mg PO Q6H PRN 10/13/18 04/27/24 Strength] Cyanocobalamin (Vitamin B-12) 1,000 mcg SL DAILY 10/13/18 04/27/24 [Vitamin B-12 (1000 mcg sublingual)] Potassium Chloride 20 meq PO BID 10/13/18 04/27/24 Cholecalciferol (Vitamin D3) 1 cap PO DAILY 11/04/18 04/27/24 [Vitamin D3] - Allergies Allergies/Adverse Reactions: Allergies Allergy/AdvReac Type Severity Reaction Status Date / Time clindamycin Allergy Rash Verified 04/28/24 09:27 doxycycline Allergy Rash Verified 04/28/24 09:27 Sulfa (Sulfonamide Allergy Hives Verified 04/28/24 09:27 Antibiotics) quetiapine fumarate * AdvReac "makes me Verified 04/28/24 09:27 [From Serosol] anna" Impression/Plan - Problem List Problem List: Visit Type: Initial Consult Referring Provider: Brenda Delaney DNP/COMMERCIAL INTERIOR DESIGNER/PHOTOSTATIC COPY MAKER-C Primary Provider: Brenda Delaney DNP, STACY, PHOTOSTATIC COPY MAKER-C CC: colonoscopy . History of Present Illness: Patient is here today for a consult: colonoscopy .............. .....................................................Bernice Farfan MA April 02, 2024 9:00 AM. Pennie is a 54 year old female who is referred to my office for screening colonoscopy examination. She denies lower GI symptoms such as change in her bowel habits or bleeding or a family history of colon cancer. She has not had a prior CS eamination. Her Cologuard test was +. Mallampati Score Class I: The soft palate, tonsils, anterior and posterior pillars, and the entire uvula are easily visible ASA Physical Status Classification System ASA II: A patient with mild systemic disease Allergies: Allergies Reviewed: Done SULFA (SULFADIAZINE) (Moderate) SEROQUEL (QUETIAPINE FUMARATE) (QUETIAPINE FUMARATE) (Moderate) CLINDAMYCIN HCL (CLINDAMYCIN HCL) (Moderate) DOXYCYCLINE (DOXYCYCLINE) (Moderate) Social History Reviewed: Done Medications: Meds Reviewed: Done gabapentin 600 mg tablet (gabapentin) Take 1 1/2 tablet by mouth three times a day Take 1/2 by mouth in the morning, and 1 in the pm in the evening for neuropathy bupropion HCl 300 mg tablet extended release 24 hr (bupropion hcl) Take 1 tablet by mouth once daily for depression and anxiety pantoprazole 40 mg tablet,delayed release (DR/EC) (pantoprazole) TAKE 1 TABLET BY MOUTH ONCE DAILY DIRECTED for GERD rosuvastatin 10 mg tablet (rosuvastatin) TAKE 1 TABLET BY MOUTH ONCE DAILY AT BEDTIME FOR CHOLESTEROL fluoxetine 40 mg capsule (fluoxetine) Take 2 capsules by mouth once daily furosemide 40 mg tablet (furosemide) TAKE 1 TABLET BY MOUTH THREE TIMES DAILY potassium chloride 20 mEq tablet,ER particles/crystals (potassium chloride) TAKE 1 TABLET BY MOUTH TWICE DAILY. PLEASE HAVE LABS DRAWN PRIOR TO NEXT REFILL ergocalciferol (vitamin D2) 50 mcg (2,000 unit) tablet (ergocalciferol (vitamin d2)) Take 4 tablet by mouth once a day Eliquis 5 mg tablet (apixaban) Take 1 tablet by mouth twice a day sotalol 80 mg tablet (sotalol) Take 1 tablet by mouth twice a day * DISABLED PARKING PRIVILEGE She suffers from a condition which qualified for a permanent parking pass: cannot walk 200 feet without stopping to rest cyanocobalamin (vitamin B-12) 1,000 mcg tablet (cyanocobalamin (vitamin b-12)) Take 1 tablet once a day Problems: Problems Reviewed: Done Encounter for screening for malignant neoplasm of colon (ICD-V76.51) (ICD10- Z12.11) Abnormal stool finding (ICD-792.1) (ERO17-E20.5) Eye exam (ICD-V72.0) (WDC59-D38.00) Thumb pain, left (ICD-729.5) (WLL30-L55.645) Anemia (ICD-285.9) (DTN72-W80.9) Acute renal insufficiency (ICD-593.9) (NFQ41-I55.9) Knee pain, bilateral (ICD-719.46) (HKI22-T15.561) Hx of pancreatitis, acute (ICD-V12.70) (BCA94-S53.19) Screening, cervical cancer (ICD-V76.2) (LMQ16-Q91.4) Taking high risk medication (YGL13-Z68.89) Personal history of transient ischemic attack (TIA), and cerebral infarction without residual deficits (ICD-V12.54) (QKF62-K82.73) Chronic kidney disease stage 3B (GCI66-F69.32) Atrial fibrillation (ICD-427.31) (KMM95-Q04.0) Anxiety (ICD-300.00) (YDT10-U81.9) Vitamin B12 deficiency (ICD-266.2) (DRS13-C80.8) Renal insufficiency (ICD-593.9) (BFV61-I57.9) Hyperlipidemia (ICD-272.4) (YFD98-D72.5) Vitamin D deficiency (ICD-268.9) (YMX15-G16.9) Elevated parathyroid hormone (ICD-790.6) (ZYJ61-X65.89) Lymphedema (ICD-457.1) (NXI49-S20.0) Croft's esophagus (ICD-530.85) (KDN11-A80.70) Depression (ICD-311) (CPN24-L14.9) Diabetes mellitus, type 2 (ICD-250.00) (UQI53-Y56.9) Obesity (ICD-278.00) (WJU41-G91.9) Past Medical History: Reviewed history from 02/23/2022 and no changes required: Lymphedema, B/L Anemia, secondary to Vit B 12 deficiency, secondary to gastric bypass surgery. Obesity DMII PCOS THIAGO DJD, knees Hyperlipidemia Vitamin D deficiency Renal insufficiency Elevated PTH, secondary to gastric bypass. Anxiety Depression Joint Swelling Arthritis Numbness/Tingling Reflux Past Surgical History: Reviewed history from 02/23/2022 and no changes required: Gastric bypass in 2011 Surgeries for lymphedema Tonsillectomy 1984 Family History Summary: Family History Reviewed: 04/02/2024 Family History of Arthritis for Mother - Entered On: 10/06/2018 Family History of Diabetes for Mother - Entered On: 05/31/2016 Family History of Heart Disease for Mother - Entered On: 05/31/2016 Family History of Heart Disease for Mother - Entered On: 10/06/2018 Family History of High Cholesterol for Mother - Entered On: 10/06/2018 Family History of Arthritis for Father - Entered On: 10/06/2018 Family History of Lung Cancer for Father - Entered On: 10/06/2018 Family History of Other Cancer for Father - Entered On: 10/06/2018 Family History of Stroke/CVA for Father - Entered On: 10/06/2018 Family History of Other Cancer for Aunt - Entered On: 06/17/2020 Legacy Family History Notes: Mother: CHF, DM, a fib MGF: CHF, Risk Factors-CCC: Smoked Tobacco Use: Never smoker Smokeless Tobacco Use: Never Passive Smoke Exposure: no Alcohol Use: no Drug Use: no Marijuana Use: no Review of Systems See HPI General Denies fever, anorexia and weight loss. GI Denies abdominal pain, nausea, vomiting, diarrhea, constipation, change in bowel habits, melena, hematochezia, jaundice, gas/bloating, indigestio n/heartburn, dysphagia and odynophagia. Breast Denies left breast lump, right breast lump, nipple discharge, bloody discharge from nipple, breast pain, abnormal mammogram and breast enlargement. CV Denies chest pains, palpitations, syncope and peripheral edema. Resp Denies cough, shortness of breath, hemoptysis, wheezing and pleuritic chest pain. Vascular Denies varicose veins, leg swelling, leg redness, leg coolness, pain in legs with walking, resting leg pain, pain at night in legs and blue toe(s). Denies dysuria, hematuria, discharge, urinary frequency, urinary hesitancy, nocturia, incontinence and erectile dysfunction. Wound Denies wound redness, wound discharge, wound pain, opening of wound, purulent discharge and bleeding from wound. Derm Denies suspicious lesions, new skin lesions, changing mole(s), rash, itching and history of skin cancer. Neuro Denies paralysis, paresthesias, seizures and frequent headaches. Psych Denies depression, anxiety, memory loss, suicidal ideation, hallucinations, paranoia, phobia and confusion. Endo Denies cold intolerance, heat intolerance, polydipsia, polyphagia, polyuria and unusual weight change. Heme Denies abnormal bruising, bleeding and enlarged lymph nodes. MS Denies back pain, sciatica and arthritis. Other Denies stoma redness, pain around stoma, discharge from stoma, pain from venous catheter, redness at vascular access site and purulent drainage from vascular access site. Vital Signs: Patient Profile: 54 Years Old Male Height: 66.25 inches Weight: 254.1 pounds BMI: 40.85 O2 Sat: 99 % on room air Temp: 97.2 degrees F temporal Pulse rate: 67 / minute Pulse rhythm: regular Resp: 16 per minute BP sittin / 71 Cuff size: small Vitals Entered By: Bernice Farfan MA (April 02, 2024 9:01 AM) Problems were reviewed with the patient during this visit. Medications were reviewed with the patient during this visit. Allergies were reviewed with the patient during this visit. Allergies: SULFA (SULFADIAZINE) (Moderate) SEROQUEL (QUETIAPINE FUMARATE) (QUETIAPINE FUMARATE) (Moderate) CLINDAMYCIN HCL (CLINDAMYCIN HCL) (Moderate) DOXYCYCLINE (DOXYCYCLINE) (Moderate) Physical Exam General: Obesity in no acute distress Head: normocephalic and atraumatic Eyes: PERRLA/EOM intact; conjunctiva and sclera clear Ears: Normal hearing Nose: no deformity, discharge, inflammation, or lesions Mouth: no deformity or lesions with good dentition Neck: no masses, thyromegaly, or abnormal cervical nodes Lungs: clear bilaterally to A & P Heart: regular rate and rhythm, S1, S2 without murmurs, rubs, gallops, or clicks; No atrial fib at this encounter Abdomen: Heavy panniculus, no surgical scars Pulses: pulses normal in all 4 extremities Extremities: Bilateral lower extremity lymphedema Neurologic: no focal deficits, Psych: alert and cooperative; normal mood and affect; normal attention span and concentration Blood Pressure: Today's BP: 109/71 mmHg Impression & Recommendations: Problem # 1: Encounter for screening for malignant neoplasm of colon (ICD- V76.51) (JNZ98-E36.11) Assessment: 1) Request for screening colonoscopy examination Plan: 1) Screening colonoscopy 2) Stop Eliquis 2 days prior to the date of the procedure Consent: Pennie has been counseled for the procedure, it's indications, risks, benefits and expected outcome as well as alternative therapies. We specifically discussed risks associated with anesthesia and insertion of the endoscope into the large intestine which includes bleeding and injury to the colon which may require surgical intervention. Pennie understands, agrees, and consents to the proposed operative strategy and requests that we proceed with the procedure as outlined in our discussion. David Bryan MD, [facility] General Surgery Service Orders: Visit Code Hold ([id number]) Date: 04/28/2024; 939 Chart Update: Patient examined, chart reviewed. There are no changes to the patient's clinical status that would preclude proceeding with the scheduled procedure today. David Bryan MD, [facility] General Surgery Service
[2024-04-28] MEDS: LACTATED RINGERS 1,000 ML IV ONE ×2 (08:46→11:00)
[2024-04-28 09:03] LABS: HCG UR QUAL NEGATIVE
--- NOTE | 2024-04-28 09:41 | ANESTHESIA ---
Pre-Anesthesia VS, & Labs - Diagnosis screening - Procedure colonoscopy Vital Signs: Temp Pulse Resp BP Pulse Ox O2 Flow Rate 36 C L 55 L 18 122/78 96 04/28/24 09:11 04/28/24 09:11 04/28/24 09:11 04/28/24 09:11 04/28/24 09:11 Height: 5 ft 8 in Weight (kg): 114.4 kg Body Mass Index: 38.3 BMI Classification: Obese - NPO >8 hours - Is Patient ?: No Home Medications and Allergies Bupropion HCl [Bupropion HCl Sr] 300 mg PO DAILY 05/18/14 Fluoxetine HCl 80 mg PO DAILY 05/18/14 Furosemide 40 mg PO TID 05/18/14 Gabapentin 600 mg PO BID 05/18/14 Multivitamin [Multivitamins] 1 cap PO DAILY 05/18/14 Pantoprazole Sodium [Protonix] 40 tab PO DAILY 05/18/14 Acetaminophen [Tylenol Extra Strength] 500 mg PO Q6H PRN 10/13/18 Cyanocobalamin (Vitamin B-12) [Vitamin B-12 (1000 mcg sublingual)] 1,000 mcg SL DAILY 10/13/18 Potassium Chloride 20 meq PO BID 10/13/18 Cholecalciferol (Vitamin D3) [Vitamin D3] 1 cap PO DAILY 11/04/18 Allergies/Adverse Reactions: Allergies Allergy/AdvReac Type Severity Reaction Status Date / Time clindamycin Allergy Rash Verified 04/28/24 09:27 doxycycline Allergy Rash Verified 04/28/24 09:27 Sulfa (Sulfonamide Allergy Hives Verified 04/28/24 09:27 Antibiotics) quetiapine fumarate * AdvReac "makes me Verified 04/28/24 09:27 [From Seroquel] harleyy" Anes History & Medical History - Anesthetic History Anesthesia Complications: reports: No previous complications Family history of Anesthesia Complications: Denies Family history of Malignant Hyperthermia: Denies - Medical History Cardiovascular: reports: Hypertension Pulmonary: reports: None Gastrointestinal: reports: GERD, Other Urinary: reports: None Neuro: reports: None Musculoskeletal: reports: Osteoarthritis, Other Endocrine/Autoimmune: reports: None Blood Disorders: reports: None Skin: reports: None Smoking Status: Never smoker - Surgical History General: reports: Gastric surgery Eyes Ears Nose Throat (EENT): reports: Tonsil/Adenoidectomy Dermatologic: reports: Other Exam General: Alert, Oriented x3, Cooperative Dental: WNL Mouth Openin Fingerbreadth Neck Mobility: Normal Mallampati classification: II Thyromental Distance: 4-6 cm Respiratory: Lungs clear Cardiovascular: Regular rate Plan Anesthesia Type: General, Total IV Consent for Procedure(s) Verified and Reviewed: Yes Code Status: Attempt Resuscitation ASA classification: 2-Mild systemic disease Is this case an emergency?: No
[2024-04-28] MEDS ORDERED: PROPOFOL 500 MG/50 ML 500 MG/50 ML VIAL ONE (10:28)
[2024-04-28] MEDS ORDERED: LIDOCAINE-MPF 2% 5 ML VIAL ONE (10:28)
[2024-04-28 11:30] VITALS: BP 99/66; O2SAT 100
--- NOTE | 2024-04-28 11:35 | ANESTHESIA POST OP EVALUATION ---
Anesthesia Post Eval - Post Anesthesia Eval Vitals: Last Vital Signs Temp 36.1 C L 04/28/24 11:15 Pulse 58 L 04/28/24 11:15 Resp 16 04/28/24 11:15 BP 99/66 04/28/24 11:15 Pulse Ox 100 04/28/24 11:15 O2 Flow Rate 96 04/28/24 09:11 CV Function Including HR & BP: Stable Pain Control: Satisfactory Nausea & Vomiting: Negative Mental Status: Baseline Respiratory Status: Airway Patent Hydration Status: Satisfactory Anesthesia Complications: None
== END 2024-04-28 08:30 | disposition home or self-care (01) ==
LOC: SDS 08:29
PROVIDERS: ATTEND Surgery
DX: Z12.11 Encounter for screening for malignant neoplasm of colon (principal); R19.5 Other fecal abnormalities; K57.30 Diverticulosis of large intestine without perforation or abscess without bleeding; K64.9 Unspecified hemorrhoids; E66.9 Obesity, unspecified; Z68.38 Body mass index [BMI] 38.0-38.9, adult; I48.0 Paroxysmal atrial fibrillation; Z79.01 Long term (current) use of anticoagulants
CPT/HCPCS: 81025; G0121; J7120